=== PATIENT | male | born 1995 | race Caucasian/White ===

== ENCOUNTER → 2017-12-27 10:47 | Outpatient (CLI) | payer MEDICAID, SELFPAY ==
--- NOTE | 2017-12-27 10:51 | US_ITS ---
US scrotum HISTORY: ITS.REASON: Left testicle Mass ORDERING PHYSICIAN: Abran Goldman MD PATIENT AGE: 22 years COMPARISON: None FINDINGS: RIGHT TESTICLE: The right testicle has an unremarkable appearance measuring 4 x 2.6 x 3.8 cm. No testicular mass, hydrocele, or spermatocele,evident. Blood flow is noted to the right testicle. There is a right-sided varicocele LEFT TESTICLE: The left testicle has an unremarkable appearance measuring4.8 x 2.2 x 3.5 cm. No mass, hydrocele, or spermatocele. Blood flow is noted to the left testicle. There is a moderate sized left-sided varicocele IMPRESSION: Bilateral varicoceles left more prominent than right. Otherwise negative testicular ultrasound. No testicular mass.
== END ==
PROVIDERS: PCP Emergency Medicine; Visit Provider Emergency Medicine
DX: N50.9 Disorder of male genital organs, unspecified (principal)
CPT/HCPCS: 76870

== ENCOUNTER → 2021-06-09 14:21 | Outpatient (CLI) | payer OTHER, SELFPAY ==
[2021-06-09 14:52] LABS: Amphetamine/Metha Screen,Urine Negative ng/ml (<1000)
[2021-06-09 14:53] LABS: Barbiturates Screen,Urine Negative ng/ml (<200)
[2021-06-09 14:54] LABS: Benzodiazepines Screen,Urine Negative ng/ml (<200); Cannabinoid Screen,Urine Positive ng/ml (<50)
[2021-06-09 14:55] LABS: Cocaine Screen,Urine Negative ng/ml (<300)
[2021-06-09 14:56] LABS: Methadone Screen,Urine Negative ng/ml (<300)
[2021-06-09 14:57] LABS: Opiate Screen,Urine Negative ng/ml (<300)
[2021-06-09 14:58] LABS: Phencyclidine Screen,Urine Negative ng/ml (<25)
== END ==
PROVIDERS: Visit Provider Emergency Medicine
DX: Z79.899 Other long term (current) drug therapy (principal)
CPT/HCPCS: 80305

== ENCOUNTER → 2022-02-10 14:19 | Outpatient (CLI) | payer OTHER, SELFPAY ==
[2022-02-10 13:23] LABS: Barbiturates Screen,Urine Negative ng/ml (<200)
[2022-02-10 13:24] LABS: Amphetamine/Metha Screen,Urine Negative ng/ml (<1000); Benzodiazepines Screen,Urine Negative ng/ml (<200)
[2022-02-10 13:25] LABS: Cannabinoid Screen,Urine Positive ng/ml (<50)
[2022-02-10 13:26] LABS: Cocaine Screen,Urine Negative ng/ml (<300); Methadone Screen,Urine Negative ng/ml (<300)
[2022-02-10 13:27] LABS: Opiate Screen,Urine Negative ng/ml (<300)
[2022-02-10 13:28] LABS: Phencyclidine Screen,Urine Negative ng/ml (<25)
== END ==
PROVIDERS: PCP Emergency Medicine; Visit Provider Emergency Medicine
DX: F90.9 Attention-deficit hyperactivity disorder, unspecified type (principal)
CPT/HCPCS: 80305

== ENCOUNTER 2022-04-17 19:57 | Emergency (ER) | payer OTHER, SELFPAY ==
[2022-04-17 20:05] VITALS: BP 167/88; PULSE 125; RESP 18; TEMP 36.9; O2SAT 98; BMI 23.7
--- NOTE | 2022-04-17 20:10 | PC.NURSE ---
ER speaking with pt at this time
--- NOTE | 2022-04-17 20:13 | HMH.EDEXTP ---
ED Disposition Clinical Impression: Cellulitis of right ankle Disposition: Home, Self-Care Condition on Discharge: Fair Instructions: Cellulitis Additional Instructions: Counter Tylenol and/or ibuprofen for your pain. Please start taking the antibiotics I have prescribed for you today. Remember that you have to take them 4 times a day. Return to the emergency department immediately if you feel worse in any way. Follow-up with your primary care doctor in about 3 to 4 days if you do not see any improvement. Prescriptions: cephALEXin [Cephalexin 500mg Tab] 500 mg PO QID #40 tab Transmission Status: Pending to [id number] Referrals: Abran Goldman MD [Primary Care Provider] - - Critical Care Critical Care Time: No Attestation: On 04/17/22, the high probability of a clinically significant, sudden or life threatening deterioration of the following system(s) required my full and direct attention, intervention and personal management. The time I documented below is in addition to time spent performing reported procedures but includes the following listed in this critical care notation. Medical Decision Making - Hilario Inquiry Pt receiving controlled substance: No Vital Signs: 04/17/22 20:05 Temperature 98.4 F Temperature Source Oral Pulse Rate [Apical] 125 H Respiratory Rate 18 Blood Pressure [Right Arm] 167/88 H Blood Pressure Mean [Right Arm] 114 Blood Pressure Source [Right Arm] Automatic Cuff Blood Pressure Position [Right Arm] Sitting 02 Sat by Pulse Oximetry 98 Oxygen Delivery Method Room Air Extremity Problem HPI - General Stated complaint: [id number] lac to R ankle , swollen Time Seen by Provider: 04/17/22 20:13 - History of Present Illness HPI Narrative: The patient presents to the emergency department complaining of right-sided lateral ankle pain. He states that he injured his ankle approximately 2 to 3 days ago. It did not hurt much at that time. But today he noticed some swelling and redness. Fevers and he denies any purulent discharge. - Related Data Previous Rx's Medication Instructions Recorded dextroamphetamine-amphetamine ER 30 mg PO DAILY #30 cap 02/10/22 30 mg 24hr capsule,extend release cephALEXin [Cephalexin 500mg Tab] 500 mg PO QID #40 tab 04/17/22 Allergies Allergy/AdvReac Type Severity Reaction Status Date / Time No Known Allergies Allergy Verified 02/10/22 09:01 [facility] History - Hepatitis A Screen Drug use history?: No Attestation statement:: This patient has been screened for Hepatitis A risk factors. Medical History: Reports:: Anxiety, Asthma Other Surgeries: Yes: Other Amputation: No Fractures: No - Social History Smoking Status: Never smoker Alcohol Intake: current Alcohol Intake Frequency:: a few times a month Substance Use Type: denies use Occupational Status: employed, student Housing: house Household Members: family - Psychiatric History Pschychiatric History:: Reports:: Anxiety Family Hx:: Cancer ROS Obtained: Yes All systems reviewed & no additional complaints Physical Exam - General General appearance: alert, in no apparent distress - Head Head exam: atraumatic, normocephalic, normal inspection - Eye Eye exam: Present: normal appearance, PERRL, EOMI - ENT ENT exam: Present: normal exam, normal oropharynx, mucous membranes moist, normal external ear exam - Neck Neck exam: Present: normal inspection, full ROM, trachea midline. Absent: meningismus, lymphadenopathy - Chest Chest inspection: Present: normal inspection, symmetric chest wall rise. Absent: tenderness - Respiratory Respiratory exam: Present: normal lung sounds bilaterally. Absent: respiratory distress - Cardiovascular Cardiovascular exam: Present: regular rate, normal rhythm. Absent: JVD - Abdominal Exam Abdominal exam: Present: soft, normal bowel sounds. Absent: distention, tenderness, guarding - Extremities Exam Extremities ex
[2022-04-17 20:22] VITALS: BP 158/85; PULSE 100; RESP 18; TEMP 37.2; O2SAT 99
== END 2022-04-17 20:29 | disposition home or self-care (01) ==
PROVIDERS: Emergency Provider Emergency Medicine; PCP Emergency Medicine
DX: L03.115 Cellulitis of right lower limb (principal); S90.511A Abrasion, right ankle, initial encounter; M25.571 Pain in right ankle and joints of right foot; R22.41 Localized swelling, mass and lump, right lower limb; L53.8 Other specified erythematous conditions
CPT/HCPCS: 99283

== ENCOUNTER → 2022-05-04 10:22 | Outpatient (CLI) | payer OTHER, SELFPAY ==
--- NOTE | 2022-05-04 10:25 | XR_ITS ---
FINAL REPORT CLINICAL HISTORY: pain FINDINGS: AP, oblique, and lateral views of the left ankle were obtained. There is no prior exam for comparison. There is no fracture or dislocation. There is a sclerotic lesion in the distal tibia, likely a bone island. The ankle mortise is intact. Soft tissues are normal. IMPRESSION: No acute osseous abnormality of the left ankle. Reviewed, Interpreted and Dictated by Shaina Andujar MD Transcribed by Mariola Lundy Authenticated and [facility]
--- NOTE | 2022-05-04 10:25 | XR_ITS ---
FINAL REPORT CLINICAL HISTORY: pain FINDINGS: AP, oblique, and lateral views of the right ankle were obtained. There is no prior exam for comparison. There is no fracture or dislocation. There are several well corticated calcific densities distal to the medial malleolus, likely represent old avulsion fractures. The ankle mortise is intact. Calcification is seen in the posterior soft tissues. Soft tissues are otherwise normal. IMPRESSION: No acute osseous abnormality of the right ankle. Reviewed, Interpreted and Dictated by Shaina Andujar MD Transcribed by Mariola Lundy Authenticated and . [facility]
== END ==
PROVIDERS: PCP Emergency Medicine; Visit Provider Podiatrist
DX: M25.571 Pain in right ankle and joints of right foot (principal); M25.572 Pain in left ankle and joints of left foot
CPT/HCPCS: 73610

== ENCOUNTER 2022-05-04 12:25 | Outpatient (RCR) | payer OTHER, SELFPAY | END 2022-05-04 13:30 | disposition home or self-care (01) | LOC: PT 12:25 | PROVIDERS: Visit Provider Podiatrist | DX: M25.371 Other instability, right ankle (principal) | CPT/HCPCS: 97760 ==